=== PATIENT | male | born 1950 ===

== ENCOUNTER 2017-12-11 11:08 | Emergency (ER) | payer SELFPAY ==
[2017-12-11 11:25] VITALS: O2SAT 97
[2017-12-11] MEDS ORDERED: Lidocaine 1% Inj (20ml) IJ ONE (11:52)
[2017-12-11] MEDS ORDERED: Lidocaine 1% Inj (20ml) ONE (11:57)
--- NOTE | 2017-12-11 12:22 | ED PDOC ---
HPI: Back Time Seen by Provider: 12/11/17 11:48 Chief Complaint (Nursing): Abnormal Skin Integrity Chief Complaint (Provider): Abnormal Skin Integrity History Per: Patient History/Exam Limitations: no limitations Onset/Duration Of Symptoms: Days (x5) Current Symptoms Are (Timing): Still Present Quality Of Discomfort: "Pain" Additional Complaint(s): 67 year old male with no significant past medical history presents to the ED with upper back pain and swelling onset 5 days. He denies fever, drainage, injuries, or other medical complaints. PMD: none provided. Past Medical History Reviewed: Historical Data, Nursing Documentation, Vital Signs Vital Signs: Last Vital Signs Temp 98.4 F 12/11/17 11:24 Pulse 72 12/11/17 11:24 Resp 20 12/11/17 11:24 BP 151/71 H 12/11/17 11:24 Pulse Ox 97 12/11/17 11:24 - Medical History PMH: No Chronic Diseases - Surgical History Surgical History: No Surg Hx - Family History Family History: States: Unknown Family Hx - Social History Current smoker - smoking cessation education provided: No Ex-Smoker (has not smoked in the last 12 months): No Alcohol: Occasional Drugs: Denies - Home Medications Home Medications: Ambulatory Orders Medication Instructions Recorded Naproxen [Naprosyn] 500 mg PO Q12H #20 tab 12/11/17 Sulfamethoxazole/Trimethoprim 1 tab PO BID #20 tab 12/11/17 [Bactrim DS 800 mg-160 mg] - Allergies Allergies/Adverse Reactions: Allergies Allergy/AdvReac Type Severity Reaction Status Date / Time No Known Allergies Allergy Verified 12/11/17 11:57 Review of Systems Constitutional: Negative for: Fever Musculoskeletal: Positive for: Back Pain (and swelling) Skin: Positive for: Other (no drainage) Physical Exam - Reviewed Nursing Documentation Reviewed: Yes Vital Signs Reviewed: Yes - Physical Exam Appears: Positive for: Non-toxic, No Acute Distress Head Exam: Positive for: ATRAUMATIC, NORMOCEPHALIC Skin: Positive for: Normal Color, Warm, Dry Eye Exam: Positive for: Normal appearance, EOMI, PERRL Neck: Positive for: Painless ROM Back: Positive for: Other (3 cm by 3 cm erythema with fluctuance tender no drainage ) Neurologic/Psych: Positive for: Alert, Oriented (x3) - ECG O2 Sat by Pulse Oximetry: 97 (RA) Pulse Ox Interpretation: Normal Medical Decision Making Medical Decision Making: Time: 11:52 Initial Plan: --Wound Culture and Gram Stain Time: 12:16 --Patient to return tomorrow for packing removal and wound dressing. ---- Scribe Attestation: Documented by Linnea Smith, acting as a scribe for Rich Del Toro MD Provider Scribe Attestation: All medical record entries made by the Scribe were at my direction and personally dictated by me. I have reviewed the chart and agree that the record accurately reflects my personal performance of the history, physical exam, medical decision making, and the department course for this patient. I have also personally directed, reviewed, and agree with the discharge instructions and disposition. Procedures - Incision and Drainage Site: Upper Back I & D Procedure: sterile drapes applied, sterile dressing applied Progress: 1% lidocaine used to anesthetize the area, wound prepared and draped in sterile manner. 2 cm incision made with expression of approximately 3 ml of purulent fluid. Wound prodded with qtip to break loculations. Wound packed and dressed. Disposition - Clinical Impression Clinical Impression: Abscess - Patient ED Disposition Is Patient to be Admitted: No Counseled Patient/Family Regarding: Diagnosis, Need For Followup, Rx Given - Disposition Referrals: [facility] [Outside] Disposition: Routine/Home Disposition Time: 12:40 Condition: FAIR Additional Instructions: Regress al emergencia manana para saccar el drenage y cambiar el bandaje Prescriptions: Naproxen [Naprosyn] 500 mg PO Q12H #20 tab Sulfamethoxazole/Trimethoprim [Bactrim DS 800 mg-160 mg] 1 tab PO BID #20 tab Instructions: Abscess Incision and Drainage Forms: [employer] (Albanian) Print Language: SOMALI
[2017-12-11 12:34] VITALS: BP 138/88; PULSE 78; RESP 16; TEMP 98
== END 2017-12-11 12:32 | disposition home or self-care (01) ==
LOC: H.ER 11:08
DX: L02.212 Cutaneous abscess of back [any part, except buttock and flank] (principal)